=== PATIENT | female | born 1975 | race Caucasian/White ===

== ENCOUNTER 2019-08-14 12:16 | Emergency (ER) | payer BC ==
[~2019-08-14] VITALS: Ht 165.1 cm; Wt 90.7 kg
--- NOTE | 2019-08-14 12:28 | NUR ---
Natalie BELLO at bedside for eval.
[2019-08-14] MEDS ORDERED: ACETAMINOPHEN 325 MG TABLET PO ONE (12:30)
[2019-08-14] MEDS ORDERED: KETOROLAC TROMETHAMINE INJ 30 MG/ML VIAL IV ONE (12:30)
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
[2019-08-14] MEDS ORDERED: KETOROLAC TROMETHAMINE 15 MG/ML VIAL ONE (12:43)
[2019-08-14] MEDS ORDERED: ACETAMINOPHEN ES 500 MG TABLET ONE (12:43)
--- NOTE | 2019-08-14 13:27 | NUR ---
CALLED [facility] TO [facility]. AWAITING HIS CALL BACK
[2019-08-14] MEDS ORDERED: HYDROMORPHONE 1 MG/1 ML DISP.SYRIN IV ONE (13:30)
[2019-08-14] MEDS ORDERED: HYDROMORPHONE 1 MG/1 ML DISP.SYRIN ONE (13:39)
[2019-08-14] MEDS ORDERED: BUPIVACAINE 0.5 % PF 150 MG/30 ML VIAL ONE (13:56)
[2019-08-14] MEDS ORDERED: MORPHINE SULFATE INJ 4 MG/ML DISP.SYRIN IV ONE (14:00)
[2019-08-14] MEDS ORDERED: BUPIVACAINE 0.5 % PF 150 MG/30 ML VIAL IJ ONE (14:00)
[2019-08-14] MEDS ORDERED: MORPHINE SULFATE INJ 4 MG/ML DISP.SYRIN ONE (14:04)
--- NOTE | 2019-08-14 15:06 | NUR ---
PATIENT GIVEN A TOTAL DOSE OF MORPHINE 3MG IV. MORPHINE 1MG WILL BE WASTED.
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
[2019-08-14] MEDS ORDERED: MORPHINE SULFATE INJ 2 MG/ML DISP.SYRIN IV ONE (15:30)
--- NOTE | 2019-08-14 16:07 | NUR ---
Patient ambulatory with a steady gait. CD provided. IV removed. Catheter intact and site benign. Pressure and 4x4 applied to site. No bleeding noted.Patient discharged to home in stable condition. Written and verbal after care instructions given. Patient verbalizes understanding of instruction.
[2019-08-14 16:09] VITALS: BP 124/82
== END 2019-08-14 16:14 | disposition home or self-care (01) ==
LOC: ER 12:23
DX: S52.591A Other fractures of lower end of right radius, initial encounter for closed fracture (principal); S29.011A Strain of muscle and tendon of front wall of thorax, initial encounter; G40.909 Epilepsy, unspecified, not intractable, without status epilepticus; Z88.6 Allergy status to analgesic agent; Z88.1 Allergy status to other antibiotic agents; V49.49XA Driver injured in collision with other motor vehicles in traffic accident, initial encounter; Y93.89 Activity, other specified; Y92.488 Other paved roadways as the place of occurrence of the external cause; Y99.8 Other external cause status
CPT/HCPCS: 25605; 71045; 73100; 73110; 96374; 96375; 99284; J1170; J1885; J2270; J3490